=== PATIENT | female | born 1995 | race Hispanic/Latino ===

== ENCOUNTER 2023-07-04 12:08 | Emergency (ER) | payer SELFPAY ==
[2023-07-04 12:39] VITALS: BP 116/64; PULSE 80; RESP 16; TEMP 36.4; O2SAT 100
--- NOTE | 2023-07-04 12:51 | ED.GENADULT ---
HPI - General Adult General Chief complaint: Unspecified Stated complaint: requesting test Time Seen by Provider: 07/04/23 15:37 Source: patient Mode of arrival: ambulatory Limitations: language barrier History of Present Illness HPI narrative: patient is a pleasant 27 year old female who presents to the ED today wanting a blood test, she had a home positive. she has had a very small amount of brown discharge. denies any fever, chills, n/v/d, abdominal pain, back pain, pelvic cramping, bright red bleeding. LMP was 04/23/23. use of [facility] services used. Related Data Allergies Allergy/AdvReac Type Severity Reaction Status Date / Time No Known Allergies Allergy Verified 07/04/23 12:46 Review of Systems Review of Systems: CONSTITUTIONAL: Denies fever, chills, or sweats. CARDIOVASCULAR: Denies chest pain, palpitations, or edema. RESPIRATORY: Denies cough or dyspnea. GASTROINTESTINAL: Denies abdominal pain, nausea, vomiting, or diarrhea. GENITOURINARY: +brown vaginal discharge small amount.Denies dysuria or hematuria. denies bright red vaginal bleeding SKIN: Denies rash or itching. MUSCULOSKELETAL: Denies back pain, joint pain, or myalgia. NEUROLOGIC: Denies headache, numbness, or weakness. PSYCHIATRIC: Denies anxiety or depression. All systems reviewed & are unremarkable except as noted in HPI and below Exam Narrative: GENERAL: Well-appearing, well-nourished, and in no acute distress. HEAD: Normocephalic, atraumatic. ENT: Mucous membranes moist. CHEST: Clear to auscultation. No respiratory distress. HEART: Regular rate and rhythm. No murmur heard. Normal peripheral pulses. ABDOMEN: Soft, nontender, nondistended, normal active bowel sounds. : Pt denies any pelvic at this time EXTREMITIES: Normal range of motion. SKIN: Warm, dry, no rash. NEURO: No focal deficits. Alert and oriented x3. PSYCH: Normal mood and affect. Course Vital Signs Vital signs: Vital Signs Temperature 97.5 F L 07/04/23 12:39 Pulse Rate 80 07/04/23 12:39 Respiratory Rate 16 07/04/23 12:39 Blood Pressure 116/64 07/04/23 12:39 Pulse Oximetry 100 07/04/23 12:39 Temperature 97.5 F L 07/04/23 12:39 Pulse Rate 84 07/04/23 15:55 Respiratory Rate 16 07/04/23 15:55 Blood Pressure 114/74 07/04/23 15:55 Pulse Oximetry 100 07/04/23 15:55 Medical Decision Making MDM Narrative Medical decision making narrative: Patient presents for only a small amount of brown vaginal discharge and home positive test wanting a blood test today. She has no pain. Only small amount of brown discharge. Did not want any type of pelvic exam. She will need to follow-up with OBGYN and start taking which we gave her information for appropriate follow-up. With no pain I have no concern for ectopic. She is not febrile or toxic. She was simply wanting information on a place to go and a blood test today. Patient is nontoxic in appearance. Stable re-evaluation exam just before discharge. Patient in no acute distress. Vitals within normal limits. Discussed return precautions with the patient including all the red flag signs or symptoms of when to return the patient. The patient verbalized understanding and was agreeable with discharge and close follow-up Vital Signs Vital Signs: Vital Signs Temperature 97.5 F L 07/04/23 12:39 Pulse Rate 80 07/04/23 12:39 Respiratory Rate 16 07/04/23 12:39 Blood Pressure 116/64 07/04/23 12:39 Pulse Oximetry 100 07/04/23 12:39 Temperature 97.5 F L 07/04/23 12:39 Pulse Rate 84 07/04/23 15:55 Respiratory Rate 16 07/04/23 15:55 Blood Pressure 114/74 07/04/23 15:55 Pulse Oximetry 100 07/04/23 15:55 Lab Data Lab results reviewed: Yes I reviewed the patient's lab results. Lab results narrative: Patient's hCG quant as below, Labs: Lab Results 07/04/23 Range/Units 13:41 Beta HCG, Quant [id number]
[2023-07-04 15:55] VITALS: BP 114/74; PULSE 84; RESP 16; O2SAT 100
== END 2023-07-04 15:56 | disposition home or self-care (01) ==
PROVIDERS: Emergency Provider Nurse Practitioner
DX: Z32.01 Encounter for pregnancy test, result positive (principal)
CPT/HCPCS: 36415; 84702; 99283